=== PATIENT | female | born 1960 ===

== ENCOUNTER 2021-05-19 14:44 | Emergency (ER) | payer OTHER ==
[~2021-05-19] VITALS: Ht 160 cm; Wt 63.6 kg
[2021-05-19] MEDS ORDERED: IBUPROFEN 100 MG/5 ML SUSPENSION UDCUP PO ONE (15:15)
[2021-05-19] MEDS ORDERED: BACITRACIN 0.9 GM PACKET OINTMENT TP ONE (15:15)
[2021-05-19] MEDS ORDERED: LIDOCAINE 1% 10 ML VIAL PERC ONE (15:15)
[2021-05-19] MEDS ORDERED: POVIDONE-IODINE 10% 15 ML SOLUTION UD TP ONE (15:15)
[2021-05-19] MEDS ORDERED: KETOROLAC TROMETHAMINE 30 MG/ML VIAL IM ONE (15:30)
[2021-05-19] MEDS ORDERED: METHOCARBAMOL 500 MG TABLET PO ONE (15:30)
[2021-05-19 18:05] VITALS: BP 151/86
[2021-05-19] MEDS ORDERED: GABA-1181 PO (18:58)
[2021-05-19] MEDS ORDERED: METH-659 PO (18:58)
== END 2021-05-19 19:07 | disposition home or self-care (01) ==
LOC: EMS 14:44
DX: S63.502A Unspecified sprain of left wrist, initial encounter (principal); E11.9 Type 2 diabetes mellitus without complications; E78.00 Pure hypercholesterolemia, unspecified; V43.52XA Car driver injured in collision with other type car in traffic accident, initial encounter; Y93.89 Activity, other specified; Y92.89 Other specified places as the place of occurrence of the external cause; Y99.8 Other external cause status
CPT/HCPCS: 29125; 70450; 73110 ×2; 96372; 99284; J1885